=== PATIENT | female | born 1975 | race Caucasian/White ===

== ENCOUNTER 2021-06-13 11:54 | Emergency (ER) | payer BC ==
[~2021-06-13] VITALS: Ht 167.6 cm; Wt 77.0 kg
--- NOTE | 2021-06-13 13:44 | NUR ---
Patient to CT
[2021-06-13] MEDS ORDERED: TETanus/Pertussis (Acell)/Diphther VAC/PF (Tdap-Adult) 0.5ml syringe IMVAC ONE (14:35)
[2021-06-13] MEDS ORDERED: morphine 4 MG/ML inj SYRINge IM ONE (14:35)
[2021-06-13] MEDS ORDERED: bacitracin 15gm ointment TP ONE (14:35)
[2021-06-13] MEDS ORDERED: LIDOcaine 1% W/epiNEPHrine 1:200,000 10ml vial IJ ONE (14:35)
[2021-06-13] MEDS ORDERED: ondansetron 4mg rapidly disintigrating tab PO ONE (14:35)
[2021-06-13] MEDS ORDERED: LIDOcaine 1% W/epiNEPHrine 1:100,000 20ml vial IJ ONE (14:45)
[2021-06-13] MEDS ORDERED: ketorolac trometh. 30mg/ml inj. IV ONE (15:15)
[2021-06-13 16:16] VITALS: BP 108/63
[2021-06-14] MEDS ORDERED: ONDA4TAB12 PO (15:14)
== END 2021-06-13 16:18 | disposition home or self-care (01) ==
LOC: ER 11:55
DX: S01.111A Laceration without foreign body of right eyelid and periocular area, initial encounter (principal); S06.0X0A Concussion without loss of consciousness, initial encounter; V80.010A Animal-rider injured by fall from or being thrown from horse in noncollision accident, initial encounter; Y93.89 Activity, other specified; Y92.89 Other specified places as the place of occurrence of the external cause; Y99.8 Other external cause status
CPT/HCPCS: 12011; 70450; 70486; 72125; 73610; 90471; 90715; 96372; 99284; J2270; J3490